=== PATIENT | female | born 1975 | race Two or more races ===

== ENCOUNTER 2024-01-27 13:41 | Emergency (ER) | payer MEDICAID ==
[~2024-01-27] VITALS: Ht 149.9 cm; Wt 64.9 kg
[2024-01-27 14:33] LABS: Urine Bacteria None Seen /hpf (None Seen)
[2024-01-27 14:48] LABS: Urine Blood Negative /uL (Negative); Urine Clarity Turbid (Clear); Urine Color Yellow (Yellow); Urine Mucus FEW (None Seen); Urine Protein, UAD 1+ (Negative); Urine Specific Gravity 1.027 (1.001-1.035); Urine Urobilinogen Normal (Negative); Urine WBC 2 /hpf (0 - 5); Urine pH 6.5 (5.0-9.0)
[2024-01-27 15:18] VITALS: TEMP 97.5
[2024-01-27] MEDS: ONDANSETRON HCL 4 MG/2 ML VIAL IM ONE (15:20)
[2024-01-27] MEDS: HYDROmorphone HCL 2 MG/ML VL/or syr IM ONE (15:20)
[2024-01-27 15:21] LABS: Basophils # (auto) 0.1 10 ^3/uL (0-0.2); Basophils % (auto) 0.7 % (0.0-2.0); Eosinophils # (auto) 0 10 ^3/uL (0-0.8); Hematocrit 43.6 % (36.0-46.0); Hemoglobin 14.6 g/dL (12.2-16.2); Lymphocytes # (auto) 1.7 10 ^3/uL (0.4-5.4); Lymphocytes % (auto) 14.8 % (10.0-50.0); Mean Corpuscular Hemoglobin 28.9 pg (28.0-32.0); Mean Corpuscular Hgb Conc. 33.6 g/dL (32.0-36.0); Monocytes # (auto) 0.3 10 ^3/uL (0-1.3); Monocytes % (auto) 2.2 % (0.0-12.0); Neutrophils # (auto) 9.5 10 ^3/uL (1.6-8.6); Neutrophils % (auto) 82.3 % (37.0-80.0); Nucleated Red Blood Cells % 0.1 %; Red Blood Cells 5.07 10^6/uL (4.0-5.20); Red Cell Distribution Width 13.6 % (11.8-14.3); White Blood Cell 11.5 10^3/uL (4.4-10.8)
[2024-01-27 15:32] LABS: Alanine Aminotransferase 82 U/L (7-40); Albumin 4.6 g/dL (3.2-4.8); Alkaline Phosphatase 81 U/L (46-116); Anion Gap 9 (5-15); Aspartate Aminotransferase 67 U/L (13-40); BUN/Creatinine Ratio 11.1 (10.0-20.0); Bilirubin, Total 0.7 mg/dL (0.2-1.0); Blood Urea Nitrogen 8 mg/dL (9-23); Calcium 10.6 mg/dL (8.7-10.4); Carbon Dioxide 28 mmol/L (20-30); Chloride 101 mmol/L (98-107); Glucose 143 mg/dL (74-106); Lipase 42 U/L (12-53); Potassium 3.5 mmol/L (3.5-5.1); Sodium 138 mmol/L (136-145); Total Protein 8.1 g/dL (5.7-8.2)
[2024-01-27 15:45] LABS: Lactic Acid w/Reflex 2.7 mmol/L (0.4-2.0)
[2024-01-27 16:22] VITALS: BP 127/92; PULSE 86; RESP 16; O2SAT 92
[2024-01-27] MEDS: SODIUM CHLORIDE 0.9% 1,000 ML IV ONE (16:26)
[2024-01-27] MEDS ORDERED: ACET500T58 PO (17:52)
[2024-01-27] MEDS ORDERED: DICY10CA PO (17:52)
[2024-01-27] MEDS ORDERED: ZOFR4T PO (17:52)
== END 2024-01-27 18:24 | disposition home or self-care (01) ==
LOC: ER 13:41
DX: K52.9 Noninfective gastroenteritis and colitis, unspecified (principal); R10.2 Pelvic and perineal pain
CPT/HCPCS: 36415; 74176; 80053; 81001; 83605; 83690; 84484; 84702; 85025; 96360; 96372; 99285; J1170; J2405; J7030